=== PATIENT | female | born 1970 | race Caucasian/White ===

== ENCOUNTER 2022-01-03 07:55 | Outpatient (CLI) | payer BC, SELFPAY ==
--- NOTE | 2022-01-03 08:15 | CRLHL7_ITS ---
For Patients: As a result of the Century Cures Act, medical imaging exams and procedure reports are released immediately into your electronic medical record. You may view this report before your referring provider. If you have questions, please contact your health care provider. INDICATION : Right thyroid lobe nodule. TECHNIQUE : Ultrasound-guided fine needle aspiration of thyroid nodule. Comparison: : 12/23/2021 FINDINGS : PROCEDURE: After the informed consent and time-out, multiple fine needle aspirations were obtained from the thyroid nodule. Fine needle performed. 25 gauge needles were used. Lidocaine was used for local anesthesia. The preliminary cytology was adequate for interpretation. Real-time imaging was used for guidance and needle placement. Post imaging ultrasound demonstrates no immediate complication. IMPRESSION : Successful fine needle aspiration of solid and cystic right thyroid nodule. Dictated by Kelvin Zacarias MD @ 01/03/2022 12:24:43 PM (Electronically Signed)
== END 2022-01-03 07:56 | disposition home or self-care (01) ==
PROVIDERS: PCP Physician Assistant; Visit Provider Physician Assistant
DX: E04.1 Nontoxic single thyroid nodule (principal)
CPT/HCPCS: 10005; 88173

== ENCOUNTER 2024-07-08 13:31 | Emergency (ER) | payer SELFPAY ==
[2024-07-08] VITALS (76 sets, daily range): BP systolic 152–218; BP diastolic 98–138; PULSE 79–108; RESP 5–62; TEMP 36.3; O2SAT 89–97; BMI 27.8
--- OUTSIDE RECORDS SUMMARY | 2024-07-08 13:33 | XMS_ITS ---
Author Name Interface, [id number] lity Address [address] [place] [address] [address] [place] [address] Organization [facility] Address [address] [place] [address] [address] [place] [address] Care Team Providers Care Stove Mounter Name Role Phone Viviana Cueva Allergies and Adverse Reactions Medication/Group Name Reaction Severity Date No known allergies Plan Date Type Value 05/09/2019 APPOINTMENT JEWELRY FACER - JEWELRY FACER 2K RENAL BECKY VELASQUEZ MD 05/09/2019 APPOINTMENT JEWELRY FACER - JEWELRY FACER 2K RENAL BECKY VELASQUEZ MD Reason for Visit JEWELRY FACER - JEWELRY FACER 2K RENAL BECKY VELASQUEZ MD Encounters Date Name 05/09/2019 HTN 05/09/2019 RCC 05/09/2019 Seizure disorder Medications Date Name Route Dose Frequency Instructions Start Date End Date Status Amlodipine Oral a ctive Losartan Oral 100.0 mg active Metoprolol Oral (Tartrate) 50.0 mg active Miscellaneous Drug mulit active 06/12/19 10 Miscellaneous Drug PO 1.0 TABLET( S) daily 06/12/19 10 active 06/12/19 10 Vit-Iron Fumarate-FA Oral 60 mg-0.8 mg PO 1.0 TABLET( S) as directed 06/12/19 10 active Problems Diagnosis Status Date of Diagnosi s Factor V Leiden mutation (disorder) Active 05/2009 HTN Active Seizure disorder Active RCC Active Vital Signs Date Type Value 05/09/2019 Pain Scale 0.00 05/09/2019 Body Temperature 98.00 05/09/2019 Heart Beat 84.00 05/09/2019 Weight 204.40 05/09/2019 Oxygen Saturation 97.00 05/09/2019 Intravascular Systolic 130 05/09/2019 Intravascular Diastolic 66 05/09/2019 Respiratory Rate 16.00
--- OUTSIDE RECORDS SUMMARY | 2024-07-08 13:33 | XMS_ITS | CCD ---
Author Name Interface, [id number] lity Address [address] [place] [address] Oncology Address [address] [place] [address] Care Team Providers Care Manager Party Name Role Phone Viviana Cueva Allergies and Adverse Reactions Reason for Visit Encounters Functional Status Medications Problems Social History
--- OUTSIDE RECORDS SUMMARY | 2024-07-08 13:33 | XMS_ITS | Clinical Summary ---
Author Organization [employer] [facility] Address [address] [place] [address] Care Team Providers Care Drying Tumbler Operator Name Role Phone Lc Lopez MD Unavailable [phone] Miryam Ellington Primary Care Provider [phone] Allergies No known active allergies Medications ibuprofen (ADVIL; MOTRIN) 200 mg tablet Take 200 mg by mouth each time if needed for Headache. Active multivitamin-fo lic acid 0.4 mg tablet Take 1 tablet by mouth once daily. Active aspirin (ECOTRIN) 81 mg enteric coated tabletIndicatio ns:Heterozygous factor V Leiden mutation (HC) Take 1 tablet by mouth once daily with a meal. 0 03/30/19 20 Active medication order composerIndicat ions:DONIS (obstructive sleep apnea) 09/25/2023 AHI- 8; diagnosis obstructive sleep apnea MRD #1 1 unit 10/31/19 24 Active chlorthalidone (HYGROTON) 25 mg tabletIndicatio ns:Resistant hypertension Take 0.5 Tablets (12.5 mg) by mouth once daily. 45 Tablet 02/08/20 24 Active metoprolol succinate 50 mg sustained-relea se tabletIndicatio ns:Resistant hypertension TAKE 1 TABLET (50 MG) BY MOUTH ONCE DAILY. 90 Tablet 07/06/19 25 Active losartan 100 mg tabletIndicatio ns:Resistant hypertension TAKE 1 TABLET (100 MG) BY MOUTH ONCE DAILY. 90 Tablet 07/06/19 25 Active cloNIDine HCL 0.1 mg tabletIndicatio ns:Resistant hypertension TAKE 1 TABLET (0.1 MG) BY MOUTH ONCE DAILY. 90 Tablet 07/06/19 25 Active amLODIPine 5 mg tabletIndicatio ns:Resistant hypertension TAKE 1 TABLET (5 MG) BY MOUTH ONCE DAILY. 90 Tablet 07/06/19 25 Active losartan (COZAAR) 100 mg tabletIndicatio ns:Resistant hypertension Take 1 Tablet (100 mg) by mouth once daily. 90 Tablet 02/08/20 025 Discontinued metoprolol succinate (TOPROL XL) 50 mg sustained-relea se tabletIndicatio ns:Resistant hypertension Take 1 Tablet (50 mg) by mouth once daily. 90 Tablet 02/08/20 025 Discontinued cloNIDine HCL (CATAPRES) 0.1 mg tabletIndicatio ns:Resistant hypertension Take 1 Tablet (0.1 mg) by mouth once daily. 90 Tablet 02/08/20 025 Discontinued amLODIPine (NORVASC) 5 mg tabletIndicatio ns:Resistant hypertension Take 1 Tablet (5 mg) by mouth once daily. 90 Tablet 02/08/20 025 Discontinued Active Problems Problem Noted Date Diagnosed Date DONIS 09/25/2023 AHI- 8 10/31/2023 Thyroid nodule 07/04/2023 Seizure disorder 05/24/2023 Colon polyp 03/29/2022 Overview (03/29/2022): Colonoscopy 02/2022 5-TA, repeat in 3 years Renal cell carcinoma of left kidney 05/14/2020 Overview (05/14/2020): Left nephrectomy 2019. Aortic root dilation 11/02/2018 S/P Rib Resection 12/28/2016 Hyperlipidemia, unspecified 05/06/2016 LISET I (cervical intraepithelial neoplasia I) 01/2016 Overview (06/05/2020): 1998 Cryocautery of cervix 10/02/2015 ASCUS/HPV Negative 10/19/2015 [place]: LISET I 08/03/2017 NIL/HPV Negative 05/14/2020 NIL/HPV negative ASCCP recommends: History of CIN2 - CIN3: Pap and HPV every 3 years for 25 years. Plan: Pap/HPV due 04/2023 HTN (hypertension) 09/18/2015 Heterozygous factor V Leiden mutation 11/18/2011 Overview (11/18/2011): Patient has positive FMH for this; she is heterozygous Thoracic outlet syndrome Encounters Date Type Department Care Team Description 07/03/2024 Refill [facility] [address] [place] [address] Miryam Ellington PA Refill Request (Metoprolol Succinate, Losartan, Clonidine Hcl, Amlodipine) from Last 3 Months Immunizations Immunization Administration Dates Next Due DTaP 08/07/1974 Influenza, IIV3 (Age 6-35 mos) 11/30/2009 Influenza, IIV3 (Age >=3 years) 11/09/2011,12/30 Influenza, IIV4 12/09/2021,01/24/2019,12/27/2016 Influenza,CCIIV4 PRESERV FREE 02/11/2021 Polio Virus, Unspecified 08/07/1974 Tdap 12/09/2021,11/18/2011 Family History Medical History Relation Name Comments Good Health Father Shay COPD Maternal Aunt 1 Diabetes Maternal Aunt 1 Heart failure Maternal Aunt 1 Kidney failure Maternal Aunt 1 dialysis Stroke Maternal Aunt 1 Diabetes Maternal Aunt 2 Stroke Maternal Aunt 2 Heart Disease Maternal Grandmother Other Maternal Grandmother brain c a Stroke Maternal Grandmother Factor V Leiden deficiency Maternal Uncle Factor V Leiden deficiency Mother Danay Heart Disease Mother Danay stents placed in her 50s Hypertension Mother Danay Pulmonary embolism Other cousin, h ad Factor V Anesthesia Malignant Hyperthermia No Family History Cancer-breast No Family History Cancer-colon No Family History Relation Name Status Comments Brother Alfredo Alive Father Shay Alive Maternal Aunt 1 Maternal Aunt 2 Maternal Grandmother Maternal Uncle Mother Danay Alive Other Social History Tobacco Use Types Packs/Day Years Used Date Smoking Tobacco: Never Smokeless Tobacco: Never Tobacco Cessation:Counseling Given: Yes Alcohol Use Standard Drinks/Week Comments Yes 0 (1 standard drink = 0.6 oz pur e alcohol) rare PHQ-2 Answer Date Recorded PHQ-2 TOTAL SCORE 0 05/24/2023 Social Connections Answer Date Recorded Do you often feel lonely or isolated from those around you? 0 05/24/2023 Financial Resource Strain Answer Date R ecorded Difficulty of Paying Living Expenses 3 05/24/2023 Difficulty of Paying Living Expenses Not on file 05/24/2023 Food Insecurity Answer Date Recorded Do you worry your food will run out before you are able to buy more? 1 05/24/2023 Transportation Needs Answer Date Record ed Does lack of transportation keep you from medica l appointments? 1 05/24/2023 Does lack of transportation keep you from work, meetings or getting things that you need? 1 05/24/2023 Housing Stability Answer Date Recorded What is your housing situation today? 1 05/24/2023 Utilities Answer Date Recorded Do you have trouble paying f or utilities (for example, heat, electricity, water, phone)? 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 Not on file Not on file No t on file Obstetrics History Last Filed Vital Signs Vital Sign Reading Time Taken Comments Blood Pressure 166/107 08/29/2023 8:59 AM CDT Pulse 58 08/29/2023 8:56 AM CDT Temperature 36.9 C (98.4 F) 03/26/2019 7:55 AM DIE BARBER Respiratory Rate 14 03/18/2022 11:0 0 AM DIE BARBER Oxygen Saturation 96% 08/29/2023 8:56 AM CDT Inhaled Oxygen Concentration - - Weight 89.3 kg (196 lb 12.8 oz) 08/29/2023 8:56 AM CDT Height 171.4 cm (5' 7.48) 08/29/2023 8:56 AM CD T Body Mass Index 30.39 08/29/2023 8:56 AM CDT Plan of Treatment Upcoming Encounters Date Type Department Care Team (Late st Contact Info) Description 07/19/2024 7:00 AM CDT Office Visit [facility] [address] [place] [address] Miryam Ellington PA [address] [place] [address] Health Maintenance Due Date Last Done Comments Depression screening for age 12+ 1981 Pneumococcal series for age 50+ (1 of 1 - PCV) 09/27/2019 Zoster (shingles) series for age 50+ (1 of 2) 09/27/2019 Mammogram for age 45-75 08/20/2022 08/21/19, 05/20/2020, 01/29/2019, Additional history exists Pap test for age 21-65 05/15/2023 , 05/14/2020, 08/03/2017, Additional history exists COVID-19 vaccine series ( season) 2023 02/11/2021, 05/30/2020, 05/09/2020 BMI (ht and wt on same day) for age 18+ 08/28/2024 08/29/2023, 05/24/2023, 12/09/2021, Additional history exists Influenza Vaccine (Season Ended) 2024 12/09/2021, 02/11/2021, 01/24/2019, Additional history exists Colonoscopy through age 75 03/18/202503/18, 03/18/2022, 03/18/2022 Lipids for age 45-75 05/23/2028 05/24/2023, 12/09/2021, 08/03/2017, Additional history exists Tetanus booster 12/10/2031 12/09/2021, 11/18/2011 Hepatitis C screening for ag e 18-79 Completed 12/09/2021 Tdap Completed 12/09/2021, 11/18/2011 HIV for age 15-65 Completed 05/24/2023 Goals Goal Patient Goal Type Associated Problems Recent Progress Patient-Stated? Author BLOOD PRESSURE - MAINTAINS BP less than 140/90 Blood Pressure No Mariah Flores BLOOD PRESSURE-MAINTA INS BP LESS THAN 130/80 Blood Pressure No MarkMariah waldrop Procedures Procedure Name Priority Date/Time Associated Diagnosis Comments ANTI HIV 1/2 Routine 05/24/2023 9:08 AM CDT Encounter for screening for human immunodeficiency virus (HIV) LIPID PANEL W REFLEX MEASURED LDL Routine 05/24/2023 9:08 AM CDT Mixed hyperlipidemia COLONOSCOPY SCREENING Routine 03/18/2022 9:47 AM DIE BARBER Screening for colon cancer ANTI HCV Routine 12/09/2021 2:50 PM CDT Need for hepatitis C screening test XR MAMMO GRACIE BILAT SCREEN Routine 08/20/2021 2:50 PM CDT Encounter for screening mammogram for malignant neoplasm of breast CHANNEL OPENER OUTSOLES THIN PREP PAP DIAGNOSTIC IMAGED Routine 05/14/2020 1:13 PM CDT LISET I (cervical intraepithelial neoplasia I) from Last 3 Months or Most Recently Relevant to Health Maintenance Results * (ABNORMAL) LIPID PANEL W REFLEX MEASURED LDL (05/24/2023 9:08 AM CDT) CHOLESTEROL,TOTAL 225(H) 100 - 199 mg/dL 05/24/2023 5:18 PM CDT [facility] [employer] Comment: Cholesterol, Total Reference Ranges Desirable <200 mg/dL Borderline 200-239 mg/dL High >=240 mg/dL TRIGLYCERIDES 235(H) <150 mg/dL 05/24/2023 5:18 PM CDT [facility] [employer] LABORATORY-[facility] HDL CHOLESTEROL 35(L) >40 mg/dL 5:18 PM CDT [facility] NON-HDL CHOLESTEROL 190(H) <145 mg/dl 05/24/2023 5:18 PM CDT [facility] CHOL/HDL RATIO 6.43(H) <4.50 05/24/2023 5:18 PM CDT [facility] LDL CHOLESTEROL 143(H) <=130 mg/dL 05/24/2023 5:18 PM CDT [facility] VLDL CHOLESTEROL 47(H) <=30 mg/dL 05/24/2023 5:18 PM CDT [facility] [employer] PROVIDER ORDERED STATUS RANDOM 05/24/2023 5:18 PM CDT [facility] Blood BLOOD SPECIMEN / Unknown Venipuncture / Unknown 05/24/2023 9:08 AM CDT 05/24/2023 9:09 AM CDT Miryam WILEY CHEMISTRY Final Res ult Performing Organization Address [facility]/ZIP Co de Phone Number [facility] [address] [place] [address], [place] * ANTI HIV 1/2 [62720.0] (05/24/2023 9:08 AM CDT) HIV-1/HIV-2 SCREEN Non-Reacti ve Non-Reacti ve 05/24/2023 4:57 PM CDT [facility] Comment:HIV-1 p24 and HIV-1/ HIV-2 Ab Not Detected. Blood BLOOD SPECIMEN / Unknown Venipuncture / Unknown 05/24/2023 9:08 AM CDT 05/24/2023 9:09 AM CDT Miryam WILEY SEND OUTS Final Res ult Performing Organization Address [facility] Co de Phone Number [facility] [address] [place] [phone], [place] * COLONOSCOPY (03/18/2022 9:44 AM DIE BARBER) 03/18/2022 9:44 AM DIE BARBER Narrative Transcriptions Ted Castrejon MD - 03/18/2022 10:44 AM CST Patient Name: Kelli Roberts Procedure Date: 03/18/2022 Gender: Female Date of : 1970 Admit Type: Outpatient Procedure: Colonoscopy Proceduralist: Ted Castrejon MD , Ashley Van, SUSAN(Nurse), Quynh Barnett (Nurse) Referring MD: Chandni Couch Indications/Pre-Op Diagnosis: Screening for colorectal malignant neoplasm, This is the patient's first colonoscopy Medications: Midazolam 2 mg IV, Fentanyl 100 microgramsIV, The level of sedation administered wasmoderate Procedure Description: The patient had risks, benefits and alternatives explained to andgave informed consent. The patient had a stable cardiopulmonary status and judged an adequate candidate for conscious sedation. The endoscope [id number]-[id number] [id number] was passed through the anus andadvanced to the cecum, identified by appendiceal orifice and ileocecal valve.The colonoscopy was performed without difficulty. The patient toleratedthe procedure well. The quality of the bowel preparation was good. The ileocecal valve, appendiceal orifice, and rectum were photographed. Complications: No immediate complications. Estimated Blood Loss & Specimen: Estimated blood loss: none. Specimen collected - Yes and sent to Laboratory Findings: The perianal and digital rectal examinations were normal. Five sessile polyps were found in the ascending colon. The polypswere 3 to 5 mm in size. These polyps were removed with a cold snare.Resection and retrieval were complete. A 3 mm polyp was found in the sigmoid colon. The polyp was sessile.The polyp was removed with a cold snare. Resection and retrieval were complete. Many small-mouthed diverticula were found in the sigmoid colon. The exam was otherwise without abnormality on direct and retroflexion views. Impressions/Post-Op Diagnosis: - Five 3 to 5 mm polyps in the ascending colon, removed with a cold snare. Resected and retrieved. - One 3 mm polyp in the sigmoid colon, removed with a cold snare. Resected and retrieved. - Diverticulosis in the sigmoid colon. - The examination was otherwise normal on direct and retroflexionviews. Recommendation: - Patient has a contact number available for emergencies. The signsand symptoms of potential delayed complications were discussed with the patient. Return to normal activities tomorrow. Written discharge instructions were provided to the patient. - Resume previous diet. - Continue present medications. - Await pathology results. - Repeat colonoscopy is recommended. The colonoscopy date will be determined after pathology results from today's exam become available for review. Moderate Sedation: A time out was performed before the procedure. Moderate (conscious) sedation was administered by the endoscopy nurse and supervised bythe endoscopist. The following parameters were monitored: oxygensaturation, heart rate, blood pressure, EKG, CO2, respiratory rate, adequacy of pulmonary ventilation and reponse to care. Please refer to the patient's medical record flowsheets and nursing notes for moderate sedation details. Total physician intraservice time was 17 minutes. Ted Castrejon MD 03/18/2022 10:44:07 AM This report has been signed electronically. Note Initiated On: 03/18/2022 9:44 AM Procedure Code(s): --- Professional --- 59743, Colonoscopy, flexible; with removalof tumor(s), polyp(s), or other lesion(s) bysnare technique Diagnosis Code(s): --- Professional --- Z12.11, Encounter for screening formalignant neoplasm of colon D12.2, Benign neoplasm of ascending colon D12.5, Benign neoplasm of sigmoid colon K57.30, Diverticulosis of large intestine without perforation or abscess withoutbleeding CPT copyright 2020 [employer]. All rights reserved. The codes documented in this report are preliminary and upon tube and rod straightener reviewmay be revised to meet current compliance requirements. Scope In: 10:23:27 AM Scope Withdrawal Time 0 hours 13 minutes 5 seconds Scope Out: 10:38:47 AM us Ted Castrejon MD PROCEDURE ORD Final Res ult * ANTI HCV (12/09/2021 2:50 PM CDT) HEPATITIS C ANTIBODY Non-React conor Non-React conor 12/10/2021 2:10 PM CDT [facility] Comment:Antibodies to HCV no t detected; does not exclude the possibility of exposure to HCV. Blood BLOOD SPECIMEN / Unknown Venipuncture / Unknown 12/09/2021 2:50 PM CDT 12/09/2021 2:53 PM CDT Chandni WILEY SEND OUTS Final Resu lt [facility] [address] [place] [address], [place] * XR MAMMO GRACIE BILAT SCREEN (08/20/2021 2:50 PM CDT) Anatomical Region Laterality Modality BREASTS, Breast Left, Breast Right Bilateral Mammography Impressions 08/24/2021 3:59 PM CDT There is no radiographic evidence for malignancy. Recommend annual mammograms. MAMMOGRAM ASSESSMENT: ACR 1 Negative PATIENTS: You will also receive a letter with your examination results in an easy to read format. If you have questions about your results, please contact your referring provider. Narrative 08/24/2021 3:59 PM CDT For Patients: As a result of the Cures Act, medical imaging exams and procedure reports are released immediately into your electronic medical record. You may view this report before your referring provider. If you have questions, please contact your health care provider. XR MAMMO GRACIE BILAT SCREEN [[id number]] CLINICAL HISTORY: This is an asymptomatic 50 y.o. patient. INDICATION FOR EXAM: Mammogram Screening. TECHNIQUE: CC & MLO views were obtained. This study was evaluated with the assistance of Computer-Aided Detection. Breast Tomosynthesis was used in interpretation. COMPARISON FILM: Yes 05/20/20 [facility] 01/29/19 [facility] FINDINGS: The breasts have scattered areas of fibroglandular density. There are no dominant masses, suspicious micro calcifications or areas of architectural distortion. us Chandni WILEY MAMMO Final Resu lt * CHANNEL OPENER OUTSOLES THIN PREP PAP DIAGNOSTIC IMAGED (05/14/2020 1:13 PM CDT) Case Report Gynecologic Cytology Report Case: [id number] Authorizing Provider: Chandni Cocuh PA Collected: 05/14/2020 1313 Ordering Location: [facility] Received: 05/14/2020 1349 Clinic First Screen: Mitch Magaña Rescreen: Raquel Fortune Pathologist: Marlen Overton MD Specimen: CHANNEL OPENER OUTSOLES ThinPrep Vial Diagnostic, Cervical 05/25/2020 4:29 PM CDT [facility] INTERPRETATION/ RESULT NEGATIVE FOR INTRAEPITHELIAL LESION OR MALIGNANCY (NIL) (none) 05/25/2020 4:29 PM CDT [facility] at 1628 CDT OTHER NON-NEOPLASTIC FINDING(S) Reactive cellular changes associated with inflammation/repa ir 05/25/2020 4:29 PM CDT [facility] SPECIMEN ADEQUACY Satisfactory for evaluation Endocervical component present 05/25/2020 4:29 PM CDT [facility] HPV REQUEST HPV and PAP 05/25/2020 4:29 PM CDT [facility] Date of LMP 04/29/2020 05/25/2020 4:29 PM CDT [facility] Last Pap Date 08/03/17 05/25/2020 4:29 PM CDT [facility] Last Pap Result NIL 4:29 PM CDT [facility] Abnormal Pap or [place] Bx in last 5 years Yes 05/25/2020 4:29 PM CDT [facility] Menstrual Status Regular Periods 05/25/2020 4:29 PM CDT [facility] [place] Bx Done Today No 05/25/2020 4:29 PM CDT [facility] Additional Information None Given 05/25/2020 4:29 PM CDT [facility] Comment: Cytology is screened at [facility] [employer] [facility] [facility], Central Laboratory - [address], [place] [address] and [facility] - [address] [place] [address] and [facility] Laboratory - [address] [place] [address] Interpreted at [facility] Central Laboratory - [address], [place] [address] Automated Review Successful 05/25/2020 4:29 PM CDT [facility] [employer] LABORATORY- ENTRAL LABORATORY Comment:Specimen processed s uccessfully by automated chemical treatment operator device, [employer] System, [employer] ANCILLARY TESTING CHANNEL OPENER OUTSOLES HPV Ordered, Please see separate report 05/25/2020 4:29 PM CDT [facility]- ENTRAL LABORATORY Note The pap test is a screening technique, not a diagnostic procedure. It is used primarily to screen for squamous cancers and precursor lesions. Published studies have shown that it is subject to both false negative and false positive results. The pap test should not be used as the sole means to diagnose or exclude pre-malignant and malignant lesions. 05/25/2020 4:29 PM CDT [facility] [employer] [facility] Other (Cervical) Non-Blood / Unknown 05/14/2020 1:13 PM CDT 05/14/2020 1:49 PM CDT us Chandni WILEY PATHOLOGY/CYTOLOGY Final R esult [facility]ATORY [address] [place] [address], [place] from Last 3 Months or Most Recently Relevant to Health Maintenance Advance Directives * Full Code (Latest Code Status on File) Date Activated Date Inactivated Comments 03/25/2019 10:17 AM 03/26/2019 6:44 PM * Full Code Date Activated Date Inactivated Comments 12/28/2016 12:42 PM 12/30/2016 3:57 PM Care Teams Drying Tumbler Operator Relationship Specialty Start Date End Date Miryam Ellington PA [address] [place] [address] PCP - General Physician Vascular Surgeon 05/24/23 Lc Lopez MD [address] [facility] [address] [place] [address] Surgery - Urology 04/24/19
--- NOTE | 2024-07-08 14:06 | ED_ITS ---
HPI - General Adult General Time Seen by Provider: 14:06 Date Seen: 07/08/24 Chief complaint: Chest Pain Stated complaint: chest discomfort Time Seen by Provider: 07/08/24 14:06 Source: patient, RN notes reviewed and old records reviewed Mode of arrival: ambulatory Limitations: no limitations History of Present Illness HPI narrative: Kelli is a very pleasant 53-year-old female with known history of hypertension currently on amlodipine chlorthalidone clonidine losartan and metoprolol who comes to the emergency room today with fluttering of her chest. She notes mild discomfort and fluttering in her chest since last evening. This is associated with a feeling of being ?out of it?. She denies a headache shortness of breath but does endorse mild nausea. She has no abdominal pain at this time. She does note that a week ago she was with a friend and she had an episode of lightheadedness. She has not checked her blood pressure recently. No history of heart problems. Patient denies recent cough cold congestion fever chills sore throat vomiting or diarrhea. Denies any visual changes today. Does think that she is feeling that she has little fluid retention when she looks at her legs. Related Data Home Medications ?Medication ?Instructions ?Recorded ?Confirmed amlodipine 5 mg tablet 5 mg PO DAILY 07/08/24 07/08/24 chlorthalidone 25 mg tablet mg PO 07/08/24 clonidine HCl 0.1 mg tablet 0.1 mg PO DAILY 07/08/24 07/08/24 losartan 100 mg tablet 100 mg PO DAILY 07/08/24 07/08/24 metoprolol succinate 50 mg 50 mg PO DAILY 07/08/24 07/08/24 tablet,extended release 24 hr Allergies Allergy/AdvReac Type Severity Reaction Status Date / Time No Known Drug Allergies Allergy Verified 07/08/24 14:02 Review of Systems Status of ROS: Reports: 10 or more systems reviewed and unremarkable except as noted in History and below Const: Reports: fatigue; Denies: fever or chills Eyes: Denies: change in vision, blurry vision, blind spots or seeing flashes ENMT: Denies: throat pain, neck pain or nasal congestion Cardio: Reports: chest pain, palpitations, swelling of feet/ankles and lightheadedness; Denies: shortness of breath with exertion Resp: Denies: shortness of breath or cough GI: Reports: nausea; Denies: abdominal pain, vomiting or diarrhea : Denies: painful urination Musculo: Denies: neck pain Neuro: Denies: headache, numbness in extremities or weakness in extremities Endo: Reports: fatigue Exam Narrative: Exam Narrative: Patient is alert and oriented. Mentating and speaking normally. Somewhat anxious. EOM is full pupils equal round reactive. Head is atraumatic. Face symmetrical. Neck is supple without lymphadenopathy. Heart with regular rate and rhythm. Lungs are clear bilaterally abdomen soft nontender lower extremities show scant peripheral edema. Moving all extremities. Const: Vital Signs, click to edit/add: Vital Signs - 24 hr 07/08/24 13:58 07/08/24 14:21 07/08/24 14:30 Temperature 97.4 F L Pulse Rate 85 88 Pulse Rate [Pulse Oximeter] 88 Respiratory Rate 20 14 Blood Pressure Blood Pressure [Ri ght Upper Arm] 218/119 H Pulse Oximetry 97 97 94 Oxygen Delivery Me thod Room Air 07/08/24 14:32 07/08/24 14:45 07/08/24 14:47 Temperature Pulse Rate 84 93 93 Pulse Rate [Pulse Oximeter] Respiratory Rate 21 15 Blood Pressure 169/111 H 177/109 H Blood Pressure [Ri ght Upper Arm] Pulse Oximetry 95 95 92 Oxygen Delivery Me thod 07/08/24 15:00 07/08/24 15:02 07/08/24 15:15 Temperature Pulse Rate 97 95 93 Pulse Rate [Pulse Oximeter] Respiratory Rate 14 14 19 Blood Pressure 157/138 H Blood Pressure [Ri ght Upper Arm] Pulse Oximetry 92 93 91 Oxygen Delivery Me thod 07/08/24 15:17 07/08/24 15:18 07/08/24 15:30 Temperature Pulse Rate 96 95 98 Pulse Rate [Pulse Oximeter] Respiratory Rate 13 19 18 Blood Pressure 153/103 H Blood Pressure [Ri ght Upper Arm] Pulse Oximetry 93 92 91 Oxygen Delivery Me thod 07/08/24 15:32 07/08/24 15:45 07/08/24 15:47 Temperature Pulse Rate 96 98 97 Pulse Rate [Pulse Oximeter] Respiratory Rate 22 22 11 L Blood Pressure 152/107 H 171/107 H Blood Pressure [Ri ght Upper Arm] Pulse Oximetry 93 92 92 Oxygen Delivery Me thod 07/08/24 15:48 07/08/24 16:00 07/08/24 16:02 Temperature Pulse Rate 96 98 103 H Pulse Rate [Pulse Oximeter] Respiratory Rate 9 L 16 10 L Blood Pressure 159/106 H Blood Pressure [Ri ght Upper Arm] Pulse Oximetry 94 93 93 Oxygen Delivery Me thod 07/08/24 16:16 07/08/24 16:19 07/08/24 16:20 Temperature Pulse Rate 93 95 Pulse Rate [Pulse Oximeter] Respiratory Rate 62 H 18 17 Blood Pressure 182/115 H Blood Pressure [Ri ght Upper Arm] Pulse Oximetry 95 94 Oxygen Delivery Me thod 07/08/24 16:30 07/08/24 16:32 07/08/24 16:45 Temperature Pulse Rate 96 96 99 Pulse Rate [Pulse Oximeter] Respiratory Rate 18 13 19 Blood Pressure 164/121 H Blood Pressure [Ri ght Upper Arm] Pulse Oximetry 94 95 94 Oxygen Delivery Me thod 07/08/24 16:47 07/08/24 16:48 07/08/24 17:00 Temperature Pulse Rate 97 98 101 H Pulse Rate [Pulse Oximeter] Respiratory Rate 14 19 17 Blood Pressure Blood Pressure [Ri ght Upper Arm] Pulse Oximetry 95 94 94 Oxygen Delivery Me thod 07/08/24 17:02 07/08/24 17:03 07/08/24 17:15 Temperature Pulse Rate 108 H 101 H 100 Pulse Rate [Pulse Oximeter] Respiratory Rate 14 17 20 Blood Pressure 183/131 H Blood Pressure [Ri ght Upper Arm] Pulse Oximetry 95 95 93 Oxygen Delivery Me thod 07/08/24 17:22 07/08/24 17:30 07/08/24 17:42 Temperature Pulse Rate 99 98 98 Pulse Rate [Pulse Oximeter] Respiratory Rate 23 15 9 L Blood Pressure 193/131 H 192/126 H Blood Pressure [Ri ght Upper Arm] Pulse Oximetry 95 94 95 Oxygen Delivery Me thod Documenting provider has reviewed patient's vital signs: yes Course Course ED Course: Differential diagnosis includes but is not limited to arrhythmia, acute coronary syndrome, hypertensive emergency, anxiety. Will place IV draw labs include CBC, comprehensive panel, troponin. Have also ordered chest x-ray EKG and cardiac monitoring. A recheck of initial blood pressure which was elevated is over 218/119 is now 188/111. Will continue to recheck and initiate antihypertensives if needed. Have also added TSH and magnesium. Reevaluation(s) Reevaluation #1: Patient's blood pressure is gradually coming down at this time. Still remains elevated. She is asymptomatic to headache visual changes. A review of her history shows her to be on 5 different blood pressure medications including: Amlodipine 5 mg Chlorthalidone Clonidine 0.1 mg daily Losartan 100 mg daily Metoprolol 50 mg daily Reevaluation #2: Nursing staff noted patient with pauses in her heart rate. Foreign a /2nd pause noted followed by 1-02/21 pause at a later point. Troponin is negative. Have asked for Cardiology consult. Patient remains asymptomatic. Have c onfirmed with her that she has not skipped any of her doses of blood pressure medicines. Second conversation with dolphin trainer regarding this patient. Hospitalist does not feel comfortable keeping patient here given new addition of information such as history of known aortic root dilatation 4.5 cm with no follow-up since 2019, patient was lost a Nephrology follow-up for denervation. Adjunct Psychology Faculty Member informed of low TSH. At this time patient is not tremulous, is not febrile or in a stupor and thus not a thyroid storm but certainly hyperthyroid needs to be considered as part of the hypertension. Nevertheless, Cardiology does not want us to use propanolol given patient's cardiac pauses earlier in the visit. He does suggest oral held drowsy lean which we have ordered 10 mg p.o.. Patient has been accepted at [facility] but there is up to an 8 hour wait. Will keep her in the emergency room for ongoing management. Reevaluation #3: In spite of hydralazine p.o. blood pressure is elevated once again to 190. Will initiate IV hydralazine at this time to keep blood pressure below 150 systolic. Consultations Consultation #1: Initial consultation with [facility]. Able to share the EKGs as well as rhythm strip. Suggested continued observation with hydralazine to keep blood pressure systolic lead 150 or below. Suggested discontinuing metoprolol given the 2nd pause. Also suggested head CT. Spoke to hospitalist who will consider admission. With awaiting 2nd troponin, head CT as well as TSH and magnesium levels. Vital Signs Vital signs: Initial Vital Signs Temperature 97.4 F L 07/08/24 13:58 Temperature Source Temporal Artery Scan 07/08/24 13:58 Pulse Rate 88 07/08/24 13:58 Pulse Rhythm Irregular 05/19/25 13:58 Respiratory Rate 20 07/08/24 13:58 Blood Pressure 218/119 H 07/08/24 13:58 Blood Pressure Mean 152 H 07/08/24 13:58 Blood Pressure Position Sitting 07/08/24 13:58 Pulse Oximetry 97 07/08/24 13:58 Oxygen Delivery Method Room Air 07/08/24 13:58 Vital Signs Temperature 97.4 F L 07/08/24 13:58 Pulse Rate 88 07/08/24 13:58 Respiratory Rate 20 07/08/24 13:58 Blood Pressure 218/119 H 07/08/24 13:58 Pulse Oximetry 97 07/08/24 13:58 Oxygen Delivery Method Room Air 07/08/24 13:58 Temperature 97.4 F L 07/08/24 13:58 Pulse Rate 98 07/08/24 17:42 Respiratory Rate 9 L 07/08/24 17:42 Blood Pressure 192/126 H 07/08/24 17:42 Pulse Oximetry 95 07/08/24 17:42 Oxygen Delivery Method Room Air 07/08/24 13:58 Medications Administered Medications: Discontinued Medications Generic Name Dose Route Start Last Admin Trade Name Freq PRN Reason Stop Dose Admin Hydralazine HCl 10 mg 07/08/24 16:49 07/08/24 17:00 Hydralazine 10 Mg Tablet PO 07/08/24 16:50 10 mg ONCE ONE Administration Methimazole 10 mg 07/08/24 17:17 07/08/24 17:37 Methimazole 5 Mg Tablet PO 07/08/24 17:18 10 mg ONCE ONE Administration Medical Decision Making [facility] Narrative Medical decision making narrative: 1. Cardiac arrhythmia-up to 5 second pause on rhythm strip that patient was asymptomatic for. Initial troponin negative. Second troponin negative at this time. Patient continues on ekg monitor. 2. Hypertension-Cardiology advises against beta-madyson and instead request use of hydralazine 10 mg p.o. for blood pressure control to keep systolic blood pressure below 150. Unfortunately blood pressure continued to rise and we initiated hydralazine IV. No headaches, chest pain, shortness of breath, diaphoresis at this time. 3. Low TSH-T3-T4 currently pending. Patient does not have a stupor, chest pain, diaphoresis and does not appear to be in thyroid storm but will be speaking with hospitalist regarding any treatment to start in [place] pending transfer. I was able to speak to tele hospitalist Dr. Atkins regarding this patient with symptoms of hyperthyroidism but not true hot thyroid storm based on her criteria. Does suggest 10 mg of methimazole. 4. Disposition-accepted in transfer by Cardiology Dr. Calvert. [facility]. This patient will be signed out to my partner Dr. Penaloza Medical Records Medical records reviewed: Yes I reviewed the patient's medical records Medical records narrative: Hospitalist able to access records. Notes no history of renal artery stenosis but patient was supposed to follow-up for Nephrology consult for denervation discussion. Also known aortic root dilatation 4.5 cm in 2019 lost to follow-up. Last echo 2019. Lab Data Lab results reviewed: Yes I reviewed the patient's lab results Labs: Lab Results 07/08/24 07/08/24 07/08/24 Range/Units 14:17 14:20 15:00 WBC 7.19 (4.50-11.00) K/uL RBC 5.21 H (4.00-5.20) m/uL Hgb 14.5 (12.0-16.0) gm/dL Hct 43.4 (33.0-51.0) % MCV 83 (80-100) fL MCH 28 (26-34) pg MCHC 33 (32-36) gm/dL RDW Coeff of Orion 14.0 (11.5-15.5) % Plt Count 285 (140-440) K/uL Neut % (Auto) 50.9 (42.0-72.0) % Lymph % (Auto) 38.9 (20-44) % Wayne % (Auto) 8.8 (0.0-11.0) % Eos % (Auto) 0.7 (0.0-7.0) % Baso % (Auto) 0.6 (0.0-3.0) % Neut # (Auto) 3.66 (1.7-7.0) K/uL Lymph # (Auto) 2.80 (0.90-2.90) K/uL Wayne # (Auto) 0.60 (0.00-0.90) K/UL Eos # (Auto) 0.05 (0.00-0.50) K/uL Baso # (Auto) 0.04 (0.00-0.30) K/uL Abs Immat Gran (auto) 0.01 (0.00-0.30) K/uL Imm/Tot Granulo (auto) 0.1 % Sodium 142 (135-149) mmol/L Potassium 3.4 L (3.6-5.1) mmol/L Chloride 108 (96-114) mmol/L Carbon Dioxide 25 (20-32) mmol/L Anion Gap 9 (7-15) mEq/L BUN 14 (7-30) mg/dL Creatinine 0.6 (0.5-1.5) mg/dL Estimated Creat Clear 100.34 Estimated GFR 107 ml/min Glucose 101 (60-115) mg/dL Calcium 10.1 (8.4-10.6) mg/dL Magnesium 1.9 (1.5-2.6) mg/dL Total Bilirubin 0.8 (0.1-1.5) mg/dL AST 27 (12-35) U/L ALT 25 (4-35) U/L Alkaline Phosphatase 70 (40-150) U/L Troponin I (0.01-0.04) ng/mL Total Protein 8.3 (6.0-8.3) g/dL Albumin 4.7 (3.3-5.0) g/dL TSH < 0.015 L (0.270-4.20) uIU/mL Free T4 (0.70-1.85) ng/dL Lab Acknowledgement Test Added POC Troponin I 0.00 L (0.01-0.04) ng/ml 07/08/24 07/08/24 Range/Units 15:20 16:26 WBC (4.50-11.00) K/uL RBC (4.00-5.20) m/uL Hgb (12.0-16.0) gm/dL Hct (33.0-51.0) % MCV (80-100) fL MCH (26-34) pg MCHC (32-36) gm/dL RDW Coeff of Orion (11.5-15.5) % Plt Count (140-440) K/uL Neut % (Auto) (42.0-72.0) % Lymph % (Auto) (20-44) % Wayne % (Auto) (0.0-11.0) % Eos % (Auto) (0.0-7.0) % Baso % (Auto) (0.0-3.0) % Neut # (Auto) (1.7-7.0) K/uL Lymph # (Auto) (0.90-2.90) K/uL Wayne # (Auto) (0.00-0.90) K/UL Eos # (Auto) (0.00-0.50) K/uL Baso # (Auto) (0.00-0.30) K/uL Abs Immat Gran (auto) (0.00-0.30) K/uL Imm/Tot Granulo (auto) % Sodium (135-149) mmol/L Potassium (3.6-5.1) mmol/L Chloride (96-114) mmol/L Carbon Dioxide (20-32) mmol/L Anion Gap (7-15) mEq/L BUN (7-30) mg/dL Creatinine (0.5-1.5) mg/dL Estimated Creat Clear Estimated GFR ml/min Glucose (60-115) mg/dL Calcium (8.4-10.6) mg/dL Magnesium (1.5-2.6) mg/dL Total Bilirubin (0.1-1.5) mg/dL AST (12-35) U/L ALT (4-35) U/L Alkaline Phosphatase (40-150) U/L Troponin I < 0.01 (0.01-0.04) ng/mL Total Protein (6.0-8.3) g/dL Albumin (3.3-5.0) g/dL TSH (0.270-4.20) uIU/mL Free T4 1.87 H (0.70-1.85) ng/dL Lab Acknowledgement Test Added POC Troponin I (0.01-0.04) ng/ml Imaging Data Chest x-ray: Attestation: I have reviewed the pertinent imaging results. Radiologist's impression: There are diffusely increased interstitial markings. There is minimal basilar atelectasis and parenchymal scar. There is no pneumothorax or pleural effusion. The cardiac silhouette is mildly prominent. The bony thorax is grossly intact. Impression: Mildly increased interstitial markings commensurate with pulmonary vascular congestion. Likely minimal basilar atelectasis and parenchymal scar. CT scan - head: Attestation: I have reviewed the pertinent imaging results. My impression: I do not note any acute masses or bleed. Radiologist's impression: Parenchyma: No acute hemorrhage, infarction, or mass. Moderate scattered periventricular white matter hypoattenuation is nonspecific and is favored to represent chronic small vessel ischemic disease. Ventricles and extra-axial spaces: Mild involutional changes. Visualized paranasal sinuses: Clear. Mastoid air cells: Clear. Bones: No focal abnormality. Additional comment: None. IMPRESSION: No acute intracranial abnormality. ECG Data Attestation: I personally reviewed and interpreted this ECG as follows: Interpretation: EKG by my read shows atrial fibrillation. With a rate of 82. ST abnormality nonspecific noted in the inferior lateral leads. No significant ST depression or ST elevation. EKG 2. By my read is read as a junctional rhythm but I do believe I note P waves although they are prolonged. Nonspecific ST and T-wave changes noted. Cardiac monitoring notes a 5-1/2nd pause followed by a 2nd pauses with sinus rhythm in between those occurrences. Discharge Plan Discharge Clinical Impression: Sinus pause, Hyperthyroidism, Hypertension Patient Disposition: [facility] Discharge Location: [facility] Condition: Improved
--- NOTE | 2024-07-08 14:17 | CRLHL7_ITS ---
For Patients: As a result of the Century Cures Act, medical imaging exams and procedure reports are released immediately into your electronic medical record. You may view this report before your referring provider. If you have questions, please contact your health care provider. Indication: Chest pain Comparison: None available. Technique: Single AP view chest Findings: There are diffusely increased interstitial markings. There is minimal basilar atelectasis and parenchymal scar. There is no pneumothorax or pleural effusion. The cardiac silhouette is mildly prominent. The bony thorax is grossly intact. Impression: Mildly increased interstitial markings commensurate with pulmonary vascular congestion. Likely minimal basilar atelectasis and parenchymal scar. Dictated by Alfredo Bradshaw MD @ 07/08/2024 3:04:44 PM (Electronically Signed)
--- OUTSIDE RECORDS SUMMARY | 2024-07-08 14:33 | XMS_ITS | CCD ---
Author Name Interface, [id number] lity Address [address] [place] [address] Oncology Address [address] [place] [address] Care Team Providers Care Digital Service Engineer Name Role Phone Viviana Cueva Allergies and Adverse Reactions Reason for Visit Encounters Functional Status Medications Problems Social History
--- OUTSIDE RECORDS SUMMARY | 2024-07-08 14:33 | XMS_ITS ---
Author Name Interface, [id number] lity Address [address] [place] [address] [address] [place] [address] Organization [facility] Address [address] [place] [address] [address] [place] [address] Care Team Providers Care Insurance Consultant Name Role Phone Viviana Cueva Allergies and Adverse Reactions Medication/Group Name Reaction Severity Date No known allergies Plan Date Type Value 05/09/2019 APPOINTMENT SPORTS EQUIPMENT SUPERVISOR - SPORTS EQUIPMENT SUPERVISOR 2K RE[employer] BECKY VELASQUEZ MD 05/09/2019 APPOINTMENT SPORTS EQUIPMENT SUPERVISOR - SPORTS EQUIPMENT SUPERVISOR 2K RENAL BECKY VELASQUEZ MD Reason for Visit SPORTS EQUIPMENT SUPERVISOR - SPORTS EQUIPMENT SUPERVISOR 2K RENAL BECKY VELASQUEZ MD Encounters Date [...]
--- OUTSIDE RECORDS SUMMARY | 2024-07-08 14:33 | XMS_ITS | Clinical Summary ---
Author Organization [facility] Address [address] [place] [address] Care Team Providers Care Recovery Coach Name Role Phone Lc Lopez MD Unavailable [phone] Miryam Ellington Primary Care Provider [phone] Allergies No known active allergies Medications ibuprofen [...] Cryocautery of cervix 10/02/2015 ASCUS/HPV Negative 10/19/2015 [place]: LISET I 08/03/2017 NIL/HPV Negative 05/14/2020 NIL/HPV negative ASCCP recommends: History of CIN2 - CIN3: Pap and HPV every 3 years for 25 years. 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 Not on file Not on file No t on file Obstetrics History Last Filed Vital Signs Vital Sign Reading Time Taken Comments Blood Pressure 166/107 08/29/2023 8:59 AM CDT Pulse 58 08/29/2023 8:56 AM CDT Temperature 36.9 C (98.4 F) 03/26/2019 7:55 AM [employer] Respiratory Rate 14 03/18/2022 11:0 0 AM [employer] Oxygen Saturation 96% 08/29/2023 8:56 AM CDT Inhaled Oxygen Concentration - - Weight 89.3 kg (196 lb 12.8 oz) 08/29/2023 8:56 AM CDT Height 171.4 cm (5' 7.48) 08/29/2023 8:56 AM CD T Body Mass Index 30.39 08/29/2023 8:56 AM CDT Plan of Treatment Upcoming Encounters Date Type Department Care Team (Late st Contact Info) Description 07/19/2024 7:00 AM CDT Office Visit [facility] [address] [place] [address] Miryam Ellington PA [address] [facility] [address] Health Maintenance Due Date Last Done Comments [...] hyperlipidemia COLONOSCOPY SCREENING Routine 03/18/2022 9:47 AM [employer] Screening for colon cancer ANTI HCV Routine 12/09/2021 2:50 PM CDT Need for hepatitis C screening test XR MAMMO GRACIE BILAT SCREEN Routine 08/20/2021 2:50 PM CDT Encounter for screening mammogram for malignant neoplasm of breast BAND SALVAGER THIN PREP PAP DIAGNOSTIC IMAGED Routine 05/14/2020 1:13 PM CDT LISET I (cervical intraepithelial neoplasia I) from Last 3 Months or Most Recently Relevant to Health Maintenance Results * (ABNORMAL) LIPID PANEL W REFLEX MEASURED LDL (05/24/2023 9:08 AM CDT) CHOLESTEROL,TOTAL 225(H) 100 - 199 mg/dL 05/24/2023 5:18 PM CDT [facility] Comment: Cholesterol, Total Reference Ranges Desirable <200 mg/dL Borderline 200-239 mg/dL High >=240 mg/dL TRIGLYCERIDES 235(H) <150 mg/dL 05/24/2023 5:18 PM CDT [facility] LABORATORY-[facility] HDL CHOLESTEROL 35(L) >40 mg/dL 5:18 PM CDT [facility] NON-HDL CHOLESTEROL 190(H) <145 mg/dl 05/24/2023 5:18 PM CDT [facility] CHOL/HDL RATIO 6.43(H) <4.50 05/24/2023 5:18 PM CDT [facility] LDL CHOLESTEROL 143(H) <=130 mg/dL 05/24/2023 5:18 PM CDT [facility] VLDL CHOLESTEROL 47(H) <=30 mg/dL 05/24/2023 5:18 PM CDT [facility] PROVIDER ORDERED STATUS RANDOM 05/24/2023 5:18 PM CDT [facility] Blood BLOOD SPECIMEN / Unknown Venipuncture / Unknown 05/24/2023 9:08 AM CDT 05/24/2023 9:09 AM CDT Miryam WILEY CHEMISTRY Final Res ult Performing Organization Address [facility]/ZIP Co de Phone Number [facility] [address] [place] [address], [place] * ANTI HIV 1/2 [11533.0] (05/24/2023 9:08 AM CDT) HIV-1/HIV-2 SCREEN Non-Reacti ve Non-Reacti ve 05/24/2023 4:57 PM CDT [facility] Comment:HIV-1 p24 and HIV-1/ HIV-2 Ab Not Detected. Blood BLOOD SPECIMEN / Unknown Venipuncture / Unknown 05/24/2023 9:08 AM CDT 05/24/2023 9:09 AM CDT Miryam WILEY SEND OUTS Final Res ult Performing Organization Address [facility] Co de Phone Number [facility] [address] [place] [address], [place] * COLONOSCOPY (03/18/2022 9:44 AM [employer]) 03/18/2022 9:44 AM [employer] Narrative Transcriptions Ted Castrejon MD - 03/18/2022 [...] candidate for conscious sedation. The endoscope [id number] was passed through the anus andadvanced to [...] 9:44 AM Procedure Code(s): --- Professional --- 74239, Colonoscopy, flexible; with removalof tumor(s), polyp(s), or other lesion(s) bysnare technique Diagnosis Code(s): --- Professional --- Z12.11, Encounter for screening formalignant neoplasm of colon D12.2, Benign neoplasm of ascending colon D12.5, Benign neoplasm of sigmoid colon K57.30, Diverticulosis of large intestine without perforation or abscess withoutbleeding CPT copyright 2020 [employer]. All rights reserved. The codes documented in this report are preliminary and upon psychological examiner reviewmay be revised to meet current compliance requirements. Scope In: 10:23:27 AM Scope Withdrawal Time 0 hours 13 minutes 5 seconds Scope Out: 10:38:47 AM us Ted Castrejon MD PROCEDURE ORD Final Res ult * ANTI HCV (12/09/2021 2:50 PM CDT) HEPATITIS C ANTIBODY Non-React conor Non-React conor 12/10/2021 2:10 PM CDT [facility] Comment:Antibodies to HCV no t detected; does not exclude the possibility of exposure to HCV. Blood BLOOD SPECIMEN / Unknown Venipuncture / Unknown 12/09/2021 2:50 PM CDT 12/09/2021 2:53 PM CDT Chandni WILEY SEND OUTS Final Resu lt [facility] [address] [place] [address], [place] * XR MAMMO GRACIE BILAT SCREEN [...] care provider. XR MAMMO GRACIE BILAT SCREEN [[id number]] CLINICAL HISTORY: This is an asymptomatic 50 y.o. patient. INDICATION FOR EXAM: Mammogram Screening. TECHNIQUE: CC & MLO views were obtained. This study was evaluated with the assistance of Computer-Aided Detection. Breast Tomosynthesis was used in interpretation. COMPARISON FILM: Yes 05/20/20 [facility] 01/29/19 [facility] FINDINGS: The breasts have scattered areas of fibroglandular density. There are no dominant masses, suspicious micro calcifications or areas of architectural distortion. us Chandni WILEY MAMMO Final Resu lt * BAND SALVAGER THIN PREP PAP DIAGNOSTIC IMAGED (05/14/2020 1:13 PM CDT) Case Report Gynecologic Cytology Report Case: [id number] Authorizing Provider: Chandni Couch PA Collected: 05/14/2020 1313 Ordering Location: [facility] Received: 05/14/2020 1349 Clinic First Screen: Mitch Magaña Rescreen: Raquel Fortune Pathologist: Marlen Overton MD Specimen: BAND SALVAGER ThinPrep Vial Diagnostic, Cervical 05/25/2020 4:29 PM CDT [facility] INTERPRETATION/ RESULT NEGATIVE FOR INTRAEPITHELIAL LESION OR MALIGNANCY (NIL) (none) 05/25/2020 4:29 PM CDT [facility] at 1628 CDT OTHER NON-NEOPLASTIC FINDING(S) Reactive cellular changes associated with inflammation/repa ir 05/25/2020 4:29 PM CDT [facility] SPECIMEN ADEQUACY Satisfactory for evaluation Endocervical component present 05/25/2020 4:29 PM CDT [facility] HPV REQUEST HPV and PAP 05/25/2020 4:29 PM CDT [facility] Date of LMP 04/29/2020 05/25/2020 4:29 PM CDT [facility] Last Pap Date 08/03/17 05/25/2020 4:29 PM CDT [facility] Last Pap Result NIL 4:29 PM CDT [facility] Abnormal Pap or [place] Bx in last 5 years Yes 05/25/2020 4:29 PM CDT [facility] Menstrual Status Regular Periods 05/25/2020 4:29 PM CDT [facility] [place] Bx Done Today No 05/25/2020 4:29 PM CDT [facility] Additional Information None Given 05/25/2020 4:29 PM CDT [facility] Comment: Cytology is screened at [facility] Central Laboratory - [address], [place] [address] and [facility] [place] - [address] [place] [address] [address] [facility] - [address] [place] [address] Interpreted at [facility] Laboratory - [address], [place] [address] Automated Review Successful 05/25/2020 4:29 PM CDT [facility] LABORATORY- ENTRAL LABORATORY Comment:Specimen processed s uccessfully by automated cryogenics engineer device, [employer]ner[employer] Imaging System, [employer] ANCILLARY TESTING BAND SALVAGER HPV Ordered, Please see separate report 05/25/2020 4:29 PM CDT [facility]- [facility] Note The pap test is [...] and malignant lesions. 05/25/2020 4:29 PM CDT [facility] Other (Cervical) Non-Blood / Unknown 05/14/2020 1:13 PM CDT 05/14/2020 1:49 PM CDT us Chandni WILEY PATHOLOGY/CYTOLOGY Final R esult [facility] [address] [place] [address], [place] from Last 3 Months or Most Recently Relevant to Health Maintenance Advance Directives * Full Code (Latest Code Status on File) Date Activated Date Inactivated Comments 03/25/2019 10:17 AM 03/26/2019 6:44 PM * Full Code Date Activated Date Inactivated Comments 12/28/2016 12:42 PM 12/30/2016 3:57 PM Care Teams Recovery Coach Relationship Specialty Start Date End Date Miryam Ellington PA [address] [place] [address] PCP - General Physician Geophysicist 05/24/23 Lc Lopez MD [address] [facility] [address] [place] [address] Surgery - Urology 04/24/19
--- OUTSIDE RECORDS SUMMARY | 2024-07-08 14:33 | XMS_ITS | CCD ---
Author Name Interface, [id number] lity Address [address] [place] [address] [address] [place] [address] Organization [facility] Address [address] [place] [address] [address] [place] [address] Care Team Providers Care Personalization Specialist Name Role Phone Viviana Cueva Allergies and Adverse Reactions Medication/Group Name Reaction Severity Date No known allergies Reason for Visit AIR TESTER - AIR TESTER 2K RENAL BECKY VELASQUEZ MD Encounters Date Name 05/09/2019 AIR TESTER - AIR TESTER 2K RENAL BECKY VELASQUEZ MD Functional Status Date Name Score 06/11/2009 [place]sky performance status 100 Medications Date Name Route Dose Frequency Instructions Start Date End Date Status Metoprolol Oral (Tartrate) 50.0 mg active Amlodipine Oral a ctive Losartan Oral 100.0 mg active Miscellaneous Drug mulit active 06/12/19 10 Miscellaneous Drug PO 1.0 TABLET( S) daily 06/12/19 10 active 06/12/19 10 Vit-Iron Fumarate-FA Oral 60 mg-0.8 mg PO 1.0 TABLET( S) as directed 06/12/19 10 active Problems Diagnosis Status Date of Diagnosi s HTN Active Seizure disorder Active RCC Active Social History Date Name Value Sex Female
--- OUTSIDE RECORDS SUMMARY | 2024-07-08 14:33 | XMS_ITS ---
Author Name Interface, [id number] lity Address [address] [place] [address] [address] [place] [address] Organization [facility] Address [address] [place] [address] [address] [place] [address] Care Team Providers Care Buttonhole Facer Name Role Phone Viviana Cueva Allergies and Adverse Reactions Medication/Group Name Reaction Severity Date No known allergies Plan Date Type Value 05/09/2019 APPOINTMENT MARKETING CO OP - MARKETING CO OP 2K RENAL BECKY VELASQUEZ MD 05/09/2019 APPOINTMENT MARKETING CO OP - MARKETING CO OP 2K RENAL BECKY VELASQUEZ MD Reason for Visit MARKETING CO OP - MARKETING CO OP 2K RENAL BECKY VELASQUEZ MD Encounters Date [...]
[2024-07-08 14:54] LABS: Chloride* 108 mmol/L (96-114)
[2024-07-08 14:55] LABS: Albumin* 4.7 g/dL (3.3-5.0); Potassium* 3.4 mmol/L (3.6-5.1); Sodium* 142 mmol/L (135-149)
[2024-07-08 14:57] LABS: Blood Urea Nitrogen* 14 mg/dL (7-30); Creatinine* 0.6 mg/dL (0.5-1.5); Est. Creatinine Clearance* 100.34; Estimated Glomerular Filt Rate 107 ml/min
[2024-07-08 14:58] LABS: Alanine Aminotransferase* 25 U/L (4-35); Alkaline Phosphatase* 70 U/L (40-150); Anion Gap 9 mEq/L (7-15); Aspartate Amino Transferase* 27 U/L (12-35); Bilirubin Total* 0.8 mg/dL (0.1-1.5); Calcium* 10.1 mg/dL (8.4-10.6); Carbon Dioxide* 25 mmol/L (20-32); Glucose* 101 mg/dL (60-115); Total Protein* 8.3 g/dL (6.0-8.3)
[2024-07-08 15:11] LABS: Basophils Absolute Auto 0.04 K/uL (0.00-0.30); Basophils Percent Auto 0.6 % (0.0-3.0); Eosinophils Absolute Auto 0.05 K/uL (0.00-0.50); Eosinophils Percent Auto 0.7 % (0.0-7.0); Hematocrit 43.4 % (33.0-51.0); Hemoglobin* 14.5 gm/dL (12.0-16.0); Immature Granulocytes Abs Auto 0.01 K/uL (0.00-0.30); Immature Granulocytes Pct Auto 0.1 %; Lymphocytes Percent Auto 38.9 % (20-44); Mean Corpuscular HGB Conc 33 gm/dL (32-36); Mean Corpuscular Hemoglobin 28 pg (26-34); Mean Corpuscular Volume 83 fL (80-100); Monocytes Percent Auto 8.8 % (0.0-11.0); Neutrophils Absolute Auto 3.66 K/uL (1.7-7.0); Neutrophils Percent Auto 50.9 % (42.0-72.0); Platelet Count* 285 K/uL (140-440); Red Blood Count 5.21 m/uL (4.00-5.20); Slide Review Reflex No; White Blood Count* 7.19 K/uL (4.50-11.00)
[2024-07-08 15:23] LABS: Magnesium* 1.9 mg/dL (1.5-2.6)
--- NOTE | 2024-07-08 15:38 | CRLHL7_ITS ---
For Patients: As a result of the Century Cures Act, medical imaging exams and procedure reports are released immediately into your electronic medical record. You may view this report before your referring provider. If you have questions, please contact your health care provider. INDICATION: HYPERTENSION TECHNIQUE: CT of the head was performed without IV contrast. COMPARISON: None. FINDINGS: Parenchyma: No acute hemorrhage, infarction, or mass. Moderate scattered periventricular white matter hypoattenuation is nonspecific and is favored to represent chronic small vessel ischemic disease. Ventricles and extra-axial spaces: Mild involutional changes. Visualized paranasal sinuses: Clear. Mastoid air cells: Clear. Bones: No focal abnormality. Additional comment: None. IMPRESSION: No acute intracranial abnormality. Please note that all CT scans at this facility use dose modulation, iterative reconstruction, and/or weight-based dosing when appropriate to reduce radiation dose to as low as reasonably achievable. Dictated by James Roper MD @ 07/08/2024 4:50:05 PM (Electronically Signed)
[2024-07-08 16:06] LABS: Thyroid Stimulating Hormone* < 0.015 uIU/mL (0.270-4.20)
[2024-07-08] MEDS: HYDRALAZINE 10 MG TABLET PO (17:00)
[2024-07-08 17:16] LABS: Free T4 Free Thyroxine* 1.87 ng/dL (0.70-1.85)
[2024-07-08 17:36] LABS: Troponin I* < 0.01 ng/mL (0.01-0.04)
[2024-07-08] MEDS: methIMAzole 5 MG TABLET 10 MG PO (17:37)
[2024-07-08] MEDS: HYDRALAZINE HCL 20 MG/ML inj 5 MG IVP (18:12)
[2024-07-08] MEDS: HYDRALAZINE HCL 20 MG/ML inj 10 MG IVP (22:53)
--- NOTE | 2024-07-08 22:56 | ED.NURSE ---
Nurse report given to SUSAN Barraza at [place]. Pt going to Unit/room [id number].
[2024-07-11 02:37] LABS: Free T3 4.2 pg/mL (2.5-4.3)
== END 2024-07-08 23:25 | disposition short-term general hospital (02) ==
PROVIDERS: Emergency Provider Family Medicine
DX: I45.5 Other specified heart block (principal); E05.90 Thyrotoxicosis, unspecified without thyrotoxic crisis or storm; I10 Essential (primary) hypertension; R11.0 Nausea; Z79.899 Other long term (current) drug therapy
CPT/HCPCS: 36415; 70450; 71045; 80053; 83735; 84439; 84443; 84481; 84484; 85025; 93005; 96374; 96375; 99284; 99285; J0360

== ENCOUNTER 2024-07-08 23:17 | Outpatient (CLI) | payer SELFPAY | END 2024-07-08 23:18 | disposition home or self-care (01) | LOC: AMB 07-11 09:51 | PROVIDERS: Visit Provider Family Medicine | DX: I45.5 Other specified heart block (principal); I10 Essential (primary) hypertension; E05.90 Thyrotoxicosis, unspecified without thyrotoxic crisis or storm | CPT/HCPCS: A0425; A0427 ==